=== PATIENT | female | born 1965 | race Caucasian/White ===

== ENCOUNTER 2017-12-27 00:16 | Emergency (ER) | payer BC ==
[~2017-12-27] VITALS: Ht 154.9 cm; Wt 86.2 kg
[~2017-12-27 00:16] MED LIST: PREMARIN
[2017-12-27 00:34] VITALS: BP 138/83
--- NOTE | 2017-12-27 00:41 | NUR ---
STREP SCREEN COLLECTED AND TAKEN TO LAB BY AMOR KENDRICK.
[2017-12-27] MEDS ORDERED: THYR60TA12 PO (00:47)
[2017-12-27] MEDS ORDERED: CALC500T52 PO (00:47)
[2017-12-27] MEDS ORDERED: ASCO125T PO (00:47)
[2017-12-27] MEDS ORDERED: CHRO1TAB6 PO (00:47)
[2017-12-27] MEDS ORDERED: IRON1TAB PO (00:47)
[2017-12-27] MEDS ORDERED: CYAN500L4 SL (00:47)
[2017-12-27] MEDS ORDERED: MULT-632 PO (00:47)
[2017-12-27] MEDS ORDERED: LANS30CA PO (00:47)
[2017-12-27] MEDS ORDERED: TORADOL ONE (00:58)
--- NOTE | 2017-12-27 01:04 | NUR ---
VERBAL ORDER FOR TORADOL 60MG IM GIVEN AT THIS TIME. MED ADMINISTERED AT THIS TIME.
[2017-12-27] MEDS: TORADOL IM STA (01:06)
[2017-12-27] MEDS ORDERED: ROCEPHIN ONE (01:27)
--- NOTE | 2017-12-27 01:30 | ER.PDOC ---
General Chief Complaint: Sore Throat Stated Complaint: R TONSIL PAIN,EARACHE,FEVER,DIFF BREATHING Time seen by MD: 01:01 Source: patient Exam Limitations: no limitations History of Present Illness Initial Comments Pt states she awoke today with a severe right sore throat, fever, bodyaches, and nasal drainage down back of her throat. It has continued all day and become slightly worse. She denies NVD cough cold; Timing/Duration: abrupt Associated Symptoms: fever/chills, severe sore throat, runny nose, congestion, earache (R) Severity: severe Prior symptoms/Treatment: Similar symptoms previous Allergies: Coded Allergies: No Known Allergies (Unverified , 11/08/13) Home Meds Reported Medications Chromium/Herbal Complex No.238 (Green Tea Caplet) 1 Each Tablet, 1 EACH PO DAILY24, TABLET 12/27/17 Cyanocobalamin (Vitamin B-12) (B-12) 500 Mcg Tab.rapdis, 500 MCG SL DAILY24 12/27/17 Iron, Carb & Gluc/Fa/B12/C/Dss (FERRALET 90 DUAL-IRON TABLET) 1 Each Tablet, 1 EACH PO DAILY24, TABLET 12/27/17 Calcium Carbonate (Calcium) 500 Mg Tab.chew, 500 MG PO DAILY24, TAB.CHEW 12/27/17 Ascorbic Acid (Vitamin C) 125 Mg Tab.chew, 125 MG PO DAILY24, TAB.CHEW 12/27/17 Multivitamin (Multi Vitamin Daily) 1 Each Tablet, 1 EACH PO DAILY24, TABLET 12/27/17 Lansoprazole (LANSOPRAZOLE) 30 Mg Capsule.dr, 15 MG PO DAILY24 12/27/17 Thyroid,Pork (Thyroid) 60 Mg Tablet, 60 CAPSULE PO DAILY24 12/27/17 Discontinued Reported Medications [Premarin] No Conflict Check, DAILY 11/08/13 Past Medical History Medical History: cancer, other Surgical History: cancer surgery, cholecystectomy, gastric bypass, hysterectomy LMP (females 10-50): hysterectomy Social History Smoking: non-smoker Alcohol Use: none Drug Use: none Reviewed Nursing Reviewed: Vital Signs, Abn. Noted, Nursing Assessment Constitutional: chills, fever, malaise Eyes: denies no symptoms reported, denies see HPI, denies blindness, denies blurred vision, denies drainage, denies decreased acuity, denies foreign body sensation, denies inflammation, denies pain, denies photophobia, denies previous injury, denies shadows, denies tunnel vision, denies vision change, denies contact lenses, denies glasses, denies other Ears: see HPI Nose: denies no symptoms reported, denies see HPI, denies clots, denies congestion, denies epistaxis, denies pain, denies bloody discharge, denies clear discharge, denies purulent discharge, denies serosanguinous discharge, denies previous injury, denies other Mouth: denies no symptoms reported, denies see HPI, denies clots, denies loose teeth, denies pain, denies swelling, denies bloody discharge, denies clear discharge, denies purulent discharge, denies serosanguinous discharge, denies previous injury, denies other Throat: pain, swelling, hoarse, painful swallowing Respiratory: denies no symptoms reported, denies see HPI, denies cough, denies orthopnea, denies shortness of breath, denies stridor, denies wheezing, denies other Cardiovascular: denies no symptoms reported, denies see HPI, denies chest pain , denies edema, denies palpitations, denies syncope, denies other Gastrointestinal: denies no symptoms reported, denies see HPI, denies abdominal pain, denies constipation, denies diarrhea, denies nausea, denies vomiting, denies other All Other Systems: Reviewed and Negative Physical Exam General Appearance: alert, mild distress Head/Neck: head nml inspection, neck nml inspection, trachea midline, no lymphadenopathy, thyroid nml Eyes: eyes nml inspection, PERRL, no nystagmus Mouth: lips, gums nml, no drooling, no thrush, membranes nml Throat: voice nml, no airway problems, pharyngeal erythema, tonsillar swelling (right tonsil red and swollen; no peritonsillar abscess is noted; left tonsil not enlarged but erythermatous) Ears/Nose: nml inspection Respiratory: no resp. distress, lungs clear CVS: reg. rate & rhythm, heart sounds nml Abdomen: non-tender, no organomegaly Extremities: non-tender, ROM nml Skin Exam: Normal Color, Warm/Dry NEURO/PSYCH: oriented X3, mood/effect nml Results/Orders Results/Orders Laboratory Tests Test 12/27/17 00:40 Group A Streptococcus Screen NEGATIVE (NEGATIVE) Administered Medications Medications (Trade) Dose Ordered Sig/Nevin Route PRN Reason Start Time Stop Time Status Last Admin Dose Admin Ketorolac Tromethamine (Toradol) 60 mg OT STAT IM 12/27/17 01:03 12/27/17 01:04 DC 12/27/17 01:06 Departure Time of Disposition: 01:40 Disposition: 01 HOME, SELF-CARE Impression: Primary Impression: Acute tonsillitis Condition: Stable Patient Instructions: Sore Throat, [id number], Tonsillitis, Strep Throat Referrals: SHILO CAGLE (PCP) PRIMARY CARE PROVIDER Additional Instructions: RX amoxicilliin 1000 mg po bid x 10 days x1 refill medrol dose pack zyrtec 10 mg po qd for cough congrestion see PCP on Friday Return to ER if worse Duration or Time Spent with Pa: 15 MYRON GARCIA MD Dec 27, 2017 01:30
[2017-12-27] MEDS: DECADRON IM STA (01:45)
[2017-12-27] MEDS: ROCEPHIN IM STA (01:47)
[2017-12-27 02:12] VITALS: BP 138/83
== END 2017-12-27 02:12 | disposition home or self-care (01) ==
LOC: ER 00:16
DX: J03.90 Acute tonsillitis, unspecified (principal); Z79.899 Other long term (current) drug therapy; Z90.49 Acquired absence of other specified parts of digestive tract; Z90.710 Acquired absence of both cervix and uterus; Z98.84 Bariatric surgery status; Z85.9 Personal history of malignant neoplasm, unspecified
CPT/HCPCS: 87070; 87880; 96372 ×3; 99284; J0696; J1885

== ENCOUNTER 2020-05-15 20:43 | Emergency (ER) | payer BC, OTHER ==
[~2020-05-15] VITALS: Ht 162.6 cm; Wt 71.7 kg
[~2020-05-15 20:43] MED LIST changes: +ASCO125T PO; +CALC500T52 PO; +CHRO1TAB6 PO; +CYAN500L4 SL; +IRON1TAB PO; +LANS30CA PO; +MULT-632 PO; +THYR60TA12 PO
[2020-05-15 20:47] VITALS: BP 134/83
--- NOTE | 2020-05-15 20:47 | NUR ---
ARRIVAL PT COMPLAINING OF LEFT SIDED CHEST PAIN WITH RADIATION TO LEFT ARM AND BACK. PT REPORTING NUMBNESS IN LEFT ARM; BLURRY VISION, AND . PT REPORITNG SOB DURING ONSET OF PAIN. PT STATES THAT PAIN OCCURRED SUDDENLY WHILE WALKING TO THE BATHROOM; PT REPORTS FALLING AT ONSET OF PAIN. DENIES LOC, SHE IS ABLE TO REMEMBER CRAWLING TO THE CHAIR AND CALLING HER SPOUSE. PT DESCRIBES PAIN STABBING, SCALED 9/10. DORSALIS PEDIS AND RADIAL PULSES INTACT BILATERALLY, STRONG PULSE PALPATED. CAP REFILL <2.
--- NOTE | 2020-05-15 20:48 | NUR ---
PMH PT DENIES HISTOR OF HEART ATTACK. STATES SHE HAS PARTIAL OCCLUSION OF AN ARTERY WITH A PREVIOUS CARDIAC WORKUP.
[2020-05-15] MEDS ORDERED: NITROSTAT SL ONE (20:59)
[2020-05-15] MEDS ORDERED: ASPIRIN PO PRN (21:00)
[2020-05-15] MEDS ORDERED: ASPIRIN ONE (21:00)
[2020-05-15] MEDS ORDERED: NITROSTAT SL PRN (21:00)
[2020-05-15 21:08] LABS: BASOPHIL % 0.3 % (0.0-0.2); EOSINOPHIL # 0.1 10^3/uL (0.0-0.2); EOSINOPHIL % 0.7 % (0.0-5.0); LYMPHOCYTES # 3.76 10^3/uL1 (1.0-4.8); LYMPHOCYTES % 27.6 % (24.0-44.0); MEAN CORP HGB 32.1 pg (26-34); MONOCYTES # 0.8 10^3/uL (0.3-0.8); MONOCYTES % 5.8 % (5.0-12.0); NEUTROPHIL # 8.9 10^3/uL (1.8-7.7); NEUTROPHILS % 65.5 % (41.0-85.0); PLATELET COUNT 292 10^3/uL (150-400); RED CELL DISTRIBUTION WIDTH 12.1 % (11.5-14.5)
--- NOTE | 2020-05-15 21:08 | NUR ---
REASSESSMENT PT REPORTING IMPROVEMENT IN PAIN AFTER NTG 0.4 ADMINISTRATION. CURRENTLY SCALED 5/10; PREVIOUSLY 9/10. PT REPORTING RADIATION OF PAIN TO ARM AND NECK HAS IMPROVED; YET LEFT ARM IS STILL WEAK.
--- NOTE | 2020-05-15 21:15 | ER.PDOC ---
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 No c/o SOB or diaphoresis or nausea. States pain is similar to that of previous AK >3 years ago (no stents placed). Timing/Duration: 1/2 hour Severity/Quality: moderate, aching, pressure Radiation: arms (left) Activities at Onset: emotional stress Prior CP/Workup: No Prior Cardiac Workup, Non-Cardiac Nitro Today/Relief: No Nitro Taken Today Aspirin Today: No Aspirin Today Associated Symptoms: denies symptoms Prior symptoms/Treatment: Similar symptoms previous Allergies: Coded Allergies: cefpodoxime (Verified Allergy, Unknown, 05/15/20) Home Meds Reported Medications Chromium/Herbal Complex No.238 (Green Tea Caplet) 1 Each Tablet, 1 EACH PO DAILY24, TABLET 12/27/17 Cyanocobalamin (Vitamin B-12) (B-12) 500 Mcg Tab.rapdis, 500 MCG SL DAILY24 12/27/17 Iron, Carb & Gluc/Fa/B12/C/Dss (FERRALET 90 DUAL-IRON TABLET) 1 Each Tablet, 1 EACH PO DAILY24, TABLET 12/27/17 Calcium Carbonate (Calcium) 500 Mg Tab.chew, 500 MG PO DAILY24, TAB.CHEW 12/27/17 Ascorbic Acid (Vitamin C) 125 Mg Tab.chew, 125 MG PO DAILY24, TAB.CHEW 12/27/17 Multivitamin (Multi Vitamin Daily) 1 Each Tablet, 1 EACH PO DAILY24, TABLET 12/27/17 Lansoprazole (LANSOPRAZOLE) 30 Mg Capsule.dr, 15 MG PO DAILY24 12/27/17 Thyroid,Pork (Thyroid) 60 Mg Tablet, 60 CAPSULE PO DAILY24 12/27/17 Past Medical History Medical History: other (one previous episode CP associated with stress) Surgical History: cancer surgery, cholecystectomy, gastric bypass, hysterectomy Family History Significant Family History: heart disease Social History Smoking: cigarettes Alcohol Use: none Drug Use: none Constitutional: denies no symptoms reported, denies see HPI, denies chills, denies diaphoresis, denies fever, denies malaise, denies weakness, denies other EENTM: denies no symptoms reported, denies see HPI, denies eye pain, denies blurred vision, denies tearing, denies double vision, denies ear pain, denies ear discharge, denies nose pain, denies nose congestion, denies throat pain, den ies throat swelling, denies mouth pain, denies mouth swelling, denies other Respiratory: denies no symptoms reported, denies see HPI, denies cough, denies orthopnea, denies shortness of breath, denies SOB with exertion, denies SOB at rest, denies stridor, denies wheezing, denies other Cardiovascular: chest pain Gastrointestinal: denies no symptoms reported, denies see HPI, denies abdomen distended, denies abdominal pain, denies blood streaked bowels, denies const ipated, denies diarrhea, denies difficulty swallowing, denies nausea, denies poor appetite, denies poor fluid intake, denies rectal bleeding, denies vomiting, denies other Musculoskeletal: denies no symptoms reported, denies see HPI, denies back pain, denies gout, denies joint pain, denies joint swelling, denies muscle pain, denies muscle stiffness, denies neck pain, denies other Skin: denies no symptoms reported, denies see HPI, denies change in color, denies change in hair/nails, denies dryness, denies lesions, denies lumps, denies rash, denies other Psychiatric/Neurological: denies no symptoms reported, denies see HPI, denies anxiety, denies depressed, denies emotional problems, denies headache, denies numbness, denies paresthesia, denies pre-existing deficit, denies seizure, denies tingling, denies tremors, denies weakness, denies other All Other Systems: Reviewed and Negative Physical Exam General Appearance: Anxious, Mild Distress (writhing on the gurney in discomfort) HEENT: PERRL/EOMI, Normal ENT Inspection Neck: Non-Tender, Supple, Normal Inspection Respiratory: lungs clear, normal breath sounds, no respiratory distress, no accessory muscle use Cardiovascular: Regular Rate, Rhythm, No Murmur Gastrointestinal: Normal Bowel Sounds, Non Tender Extremities: Non-Tender, Normal Inspection, No Pedal Edema, No Calf Tenderness Neurologic/Psychiatric: Alert, Normal Mood/Affect, Oriented x 3 Skin: Normal Color, Warm/Dry Results/Orders Results/Orders Orders - KYLER SU Nichole DO Cbc With Auto Diff (05/15/20 20:54) Comprehensive Metabolic Panel (05/15/20 20:54) Creatine Kinase (05/15/20 20:54) Creatine Kinase Mb (05/15/20 20:54) Troponin I (05/15/20 20:54) Probnp B-Type Machine Sneller (05/15/20 20:54) PT (05/15/20 20:54) Partial Thromboplastin Time. (05/15/20 20:54) Helicobacter Pylori (05/15/20 20:54) D-Dimer (05/15/20 20:54) Xr Chest 1v (05/15/20 20:54) Ekg-Routine (05/15/20 20:54) Aspirin (Aspirin) (05/15/20 21:00) Nitroglycerin (Nitrostat) (05/15/20 21:00) Saline Lock (05/15/20 20:54) Nitroglycerin (Nitrostat) (05/15/20 20:59) Aspirin (Aspirin) (05/15/20 21:00) Administered Medications Medications (Trade) Dose Ordered Sig/Nevin Route PRN Reason Start Time Stop Time Status Last Admin Dose Admin Aspirin (Aspirin) 325 mg DAILY PRN PO CHEST PAIN 05/15/20 21:00 06/14/20 20:59 05/15/20 21:03 325 MG Nitroglycerin (Nitrostat) 0.4 mg PRN PRN SL CP 05/15/20 21:00 06/14/20 20:59 05/15/20 21:03 0.4 MG Progress Progress pain relieved with ASA (not with nitro); after visiting with DR. Mitchell, patient decided she would rather not stay overnight; she did agree to a second troponin which returned WNL EKG/XRAY/CT/US EKG Comments: sinus rhythm, VR 72, no acute STT changes XRAY: chest (WNL) Consult/PCP Time Consult/PCP Called: 21:44 Consult/PCP: Dr. Mitchell Reason/Comments: admit tele ER DEPART Departure Time of Disposition: 21:44 Disposition: 01 HOME, SELF-CARE Impression: Primary Impression: Chest pain Additional Impression: Anxiety Condition: Improved Patient Instructions: Anxiety and Panic Attacks, Chest Pain (Nonspecific) Referrals: PCP,UNKNOWN (PCP) PRIMARY CARE PROVIDER Additional Instructions: Return to the emergency department if you have recurrent or worsening chest pain, shortness of breath, or any other emergent concerns. Follow-up with your primary care physician in 1 to 2 days for reevaluation. Duration or Time Spent with Pa: 45 min Problem Qualifiers Primary Impression: Chest pain Chest pain type: precordial pain Qualified Codes: R07.2 - Precordial pain KYLER SU DO May 15, 2020 21:14
[2020-05-15 21:24] LABS: ALANINE AMINOTRANSFERASE(ML) 25 U/L (12-78); ALKALINE PHOSPHATASE 62 U/L (50-136); ASPARTATE AMINO TRANSFERASE 14 U/L (0-35); CALCIUM 9.5 mg/dL (8.4-10.5); CARBON DIOXIDE 22.4 mmol/L (20.0-32); GLUCOSE 108 mg/dL (70-110)
--- NOTE | 2020-05-15 21:28 | DIREP ---
PROCEDURE:CHEST 1 VIEW COMPARISON:None. INDICATIONS:chest pain FINDINGS: LUNGS/PLEURA:No significant pulmonary parenchymal abnormalities. No effusions. VASCULATURE:Normal. Unremarkable pulmonary vasculature. CARDIAC:Normal. No cardiac silhouette abnormality or cardiomegaly. MEDIASTINUM:Normal. No visible mass or adenopathy. BONES:Mild dextroscoliosis of the thoracic spine. OTHER:EKG leads overlie the chest. CONCLUSION: 1. No acute cardiopulmonary disease. Dictated by: Martín Dickerson M.D. on 05/15/2020 at 09:26 PM
[2020-05-15 21:48] VITALS: BP 137/74
[2020-05-15 22:11] VITALS: BP 130/72
[2020-05-15] MEDS ORDERED: ATIVAN PO PRN (22:30)
[2020-05-15] MEDS ORDERED: ATIVAN IV STA (22:32)
--- NOTE | 2020-05-15 22:49 | PCM.HP ---
History of Present Illness Reason for Visit: 54-year-old lady comes in with panic attack History of Present Illness Patient is a 54-year-old lady with risk factors of family history, smoking anxiety. Has been under a lot of stress due to her son with multiple disorders of PTSD, ADHD, bipolar disorder and suicidal ideation status post 1 attempted suicide intent. Patient son lives in [place]. Patient has been stressed out and has been trying to communicate with him at least 10 times a day. Has not been sleeping very well. Has been confined to the house due to COVID-19 pandem ic since last 1 year. Her has been out of job and has had multiple financial stressors for the family. Patient comes to the emergency room with 2 days history of multiple symptoms pertaining to panic attack shortness of breath and hyperventilation which resulted in numbness of the shoulders and multiple symptoms consistent with panic attack. Patient was evaluated in the emergency room with a clear chest x-ray and a normal EKG. Cardiac enzymes were normal. Patient was given 1 dose of Ativan with much improvement of her symptoms. Patient seen and evaluated the emergency room with the help of the and the nursing staff along with Dr. Nugent. Using telemedicine protocol patient was seen and evaluated and the plan of care was discussed with patient, and Dr. Nugent Past Medical History Pulmonary: Bronchitis Past Surgical History: No pertinent hx Past Social History Smoke: 1 pack per day Alcohol: none Lives: with Family Travel Hx EBOLA RISK:Travel to/contact w: No Is pt experiencing any Ebola s: No Review of Systems Respiratory: Cough, Shortness of breath Cardiovascular: Lt Headedness Allergies: Coded Allergies: cefpodoxime (Verified Allergy, Unknown, 05/15/20) Scheduled Ascorbic Acid (Vitamin C), 125 MG PO DAILY24, (Reported) Calcium Carbonate (Calcium), 500 MG PO DAILY24, (Reported) Chromium/Herbal Complex No.238 (Green Tea Caplet), 1 EACH PO DAILY24, (Reported) Cyanocobalamin (Vitamin B-12) (B-12), 500 MCG SL DAILY24, (Reported) Iron, Carb & Gluc/Fa/B12/C/Dss (Ferralet 90 Dual-Iron Tablet), 1 EACH PO DAILY24, (Reported) Lansoprazole (Lansoprazole), 15 MG PO DAILY24, (Reported) Multivitamin (Multi Vitamin Daily), 1 EACH PO DAILY24, (Reported) Thyroid,Pork (Thyroid), 60 CAPSULE PO DAILY24, (Reported) VTE VTE Risk Score VTE Risk: Score 0-1 = Low Risk (Aggressive mobilization; early ambulation; no VTE prophylaxis required) Score 2: Moderate Risk (Intermittent/Pneumatic Compression Device OR Lovenox/Heparin/Coumadin) Score 3-4: High Risk (Intermittent/Pneumatic Compression Device AND Lovenox/Heparin/Coumadin) Score > or =5: Highest Risk (Intermittent/Pneumatic Compression Device AND Lovenox/Heparin/Coumadin) Exam Vital Signs Vital Signs Date Time Temp Pulse Resp B/P (MAP) Pulse Ox O2 Delivery O2 Flow Rate FiO2 05/15/20 21:48 64 16 137/74 (95) 100 Nasal Canula 2.00 05/15/20 20:47 98.1 General Appearance: Alert, Oriented X3, Cooperative, No acute distress HEENT: Atraumatic, PERRLA, EOMI, Mucous membr. moist/pink Respiratory: Clear to auscultation, Normal air movement Cardiovascular: Regular rate, Normal S1, Normal S2, No murmurs Abdominal: Normal bowel sounds, Soft, No tenderness Extremities: No clubbing, No cyanosis Skin: No rash, No breakdown Neuro: Normal gait, Normal speech, Strength at 5/5 X4 ext, Normal tone, Sensation intact, Cranial nerves 3-12 NL Psych/Mental Status: Other (Anxiety and panic attack resolved after Ativan) Assessment/Plan Assessment/Plan Assessment/Plan Problems Medical Problems: ) Chest pain: Atypical chest pain with panic attack likely due to severe stress and anxiety disorder. EKG is normal. Cardiac enzymes are normal Status: Acute ICD Codes: R07.9 - Chest pain, unspecified SNOMED: [id number] Responsible Provider: Agustina Nugent D.O., ER Problem Recorded: May 15, 2020 21:45 Last Edited By: Agustina Nugent D.O., Er on May 15, 2020 22:04 Laboratory Tests Test 05/15/20 20:50 White Blood Count 13.6 10^3/uL Red Blood Count 5.32 10^6/uL Hemoglobin 17.1 g/dL Hematocrit 48.5 % Mean Corpuscular Volume 91.2 fL Mean Corpuscular Hemoglobin 32.1 pg Mean Corpuscular Hemoglobin Concent 35.3 g/dL Red Cell Distribution Width 12.1 % Platelet Count 292 10^3/uL Mean Platelet Volume 9.6 fL Neutrophils (%) (Auto) 65.5 % Lymphocytes (%) (Auto) 27.6 % Monocytes (%) (Auto) 5.8 % Neutrophils # (Auto) 8.9 10^3/uL Lymphocytes # (Auto) 3.76 10^3/uL1 Monocytes # (Auto) 0.8 10^3/uL Absolute Immature Granulocyte (auto 0.01 10^3 u/L Absolute Eosinophils (auto) 0.1 10^3/uL Immature Granulocytes % 0.10 % Eosinophils % 0.7 % Basophils % 0.3 % Basophils # 0.0 10^3/uL Prothrombin Time 10.4 SEC Prothrombin Time INR (Non-Therap) 1.0 Activated Partial Thromboplast Time 24.4 SEC D-Dimer 0.33 mg/L Sodium Level 141 mmol/L Potassium Level 3.9 mmol/L Chloride Level 106.0 mmol/L Carbon Dioxide Level 22.4 mmol/L Anion Gap 16.5 Blood Urea Nitrogen 12 mg/dL Creatinine 0.77 mg/dL Estimated GFR () 94.2 Est GFR (CKD-EPI)(Non-Afr Argentine) 77.8 BUN/Creatinine Ratio 15.0 Glucose Level 108 mg/dL Calcium Level 9.5 mg/dL Total Bilirubin 0.4 mg/dL Aspartate Amino Transf (AST/SGOT) 14 U/L Alanine Aminotransferase (ALT/SGPT) 25 U/L Alkaline Phosphatase 62 U/L Total Creatine Kinase 53 U/L Creatine Kinase MB < 0.5 ng/mL Troponin I < 0.02 ng/mL Pro-B-Type Natriuretic Peptide 18 pg/mL Total Protein 7.7 g/dL Albumin 3.9 g/dL Globulin 3.8 Albumin/Globulin Ratio 1.026 Helicobacter pylori Screen NEGATIVE Current Medications Medications (Trade) Dose Ordered Sig/Nevin Route PRN Reason Start Time Stop Time Status Last Admin Dose Admin Aspirin (Aspirin) 325 mg DAILY PRN PO CHEST PAIN 05/15/20 21:00 06/14/20 20:59 05/15/20 21:03 Nitroglycerin (Nitrostat) 0.4 mg PRN PRN SL CP 05/15/20 21:00 06/14/20 20:59 05/15/20 21:03 Nitroglycerin (Nitrostat) 0.4 mg STK-MED ONCE SL 05/15/20 20:59 05/15/20 21:00 DC Aspirin (Aspirin) 325 mg STK-MED ONCE .ROUTE 05/15/20 21:00 05/15/20 21:00 DC Aspirin (Aspirin Ec) 81 mg DAILY PO 05/16/20 09:00 05/15/20 22:35 DC Lorazepam (Ativan) 1 mg Q6HR PRN PO ANXIETY 05/15/20 22:30 06/14/20 22:29 Lorazepam (Ativan) 1 mg STAT STAT IV 05/15/20 22:32 05/15/20 22:35 DC Patient History: Alzheimer's disease 33 FATHER Asthma 32 MOTHER Cerebrovascular disorder 33 FATHER Congestive heart failure 32 MOTHER Diabetes mellitus 32 MOTHER 33 FATHER Hypertension 32 MOTHER 33 FATHER No Family History of: Chronic obstructive pulmonary disease Diabetes insipidus Parkinson's disease Plan Patient does have multiple risk factors for coronary disease. Patient symptoms related to her anxiety and panic disorder which are related to multiple stressors in the family including the son with history of suicidal attempt and PTSD along with bipolar disorder. Patient is also suffering with lack of insurance and loss of job. Patient also has been confined to home with multiple pointers to depression and anxiety as well as panic disorder. Agree with the Ativan for symptomatic relief. Patient may benefit with SSRI along with as needed Xanax. Since the patient's symptoms began 2 days ago and the cardiac enzymes and EKG is normal patient is not likely to have acute coronary syndrome at this point. Case discussed in detail with Dr. Nugent. Patient might be able to go home after second set of enzymes is negative. If the patient agrees to stabilize and stay overnight we will consult psychiatry consultation for further recommendations. NIKOLAI YOU MD May 15, 2020 22:49
[2020-05-15] MEDS ORDERED: ATIVAN ONE (22:55)
[2020-05-15 23:25] VITALS: BP 139/87
--- NOTE | 2020-05-16 00:13 | NUR ---
ADMIT ORDERS CANCELLED INFORMED BY EDP DR. SU THAT PT WILL NO LONGER BE ADMITTED. SHE WILL BE DISCHARGED WITH FOLLOW UP BY PCP/CARDIOLOGY. ADMISSION ORDERS TO BE CANCELLED.
--- NOTE | 2020-05-16 04:08 | PCM.EKG ---
[facility] Test Date: 2020-05-15 Test Time: 20:46:35 Pat Name: JOHN BARRETO Department: Room: Gender: F Teacher Instrumental: ED : 1965 Requested By: KYLER NUGENT Order Number: [id number] Reading MD: Celena Nugent Measurements Intervals [place] Rate: 72 P: 62 AR: 155 QRS: 75 QRSD: 88 T: 86 QT: 392 QTc: 430 Interpretive Statements Sinus rhythm Nonspecific T abnormalities, lateral leads No previous ECG available for comparison Electronically Signed On 05-16-2020 5:51:08 SOCIAL MEDIA ASSISTANT by Celena Nugent Please click the below link to view image of tracing.
[2020-05-16] MEDS ORDERED: ASPIRIN EC PO SCH (09:00)
== END 2020-05-15 23:55 | disposition home or self-care (01) ==
LOC: ER 20:43
DX: R07.2 Precordial pain (principal); M79.642 Pain in left hand; F17.210 Nicotine dependence, cigarettes, uncomplicated
CPT/HCPCS: 36415; 71045; 80053; 82550; 82553; 83880; 84484; 85025; 85379; 85610; 85730; 86677; 93005; 99285